=== PATIENT | female | born 1930 | race Caucasian/White ===

== ENCOUNTER → 2016-08-08 | Outpatient (CLI) | payer MEDICARE ==
[~2016-08-08] MED LIST: ASPI-515 PO; METF500T4 PO; OXYC1TAB8 PO; will bring list DOS
== END | disposition home or self-care (01) ==
LOC: CFH 10:15
PROVIDERS: ATTEND Nurse Practitioner Family
DX: Z12.31 Encounter for screening mammogram for malignant neoplasm of breast (principal)
CPT/HCPCS: G0202

== ENCOUNTER 2018-10-10 18:35 | Emergency (ER) | payer MEDICARE ==
[~2018-10-10] VITALS: Ht 157.5 cm; Wt 57.9 kg
[~2018-10-10 18:35] MED LIST changes: +ASPI-650 PO; +DOCU-131 PO; +ERGO500017 PO; +METF500T17 PO; -METF500T4 PO; +OXYC5TAB3 PO; +POLY17PO5 PO
--- NOTE | 2018-10-10 19:25 | NUR ---
C/o pain luq and ruqx1 hour directly after eating w/ radiation to upper back. Denies hypotensive s/s. PER TRIAGE NOTE
--- NOTE | 2018-10-10 19:32 | NUR ---
URINE ORDERED/COLLECTED/SENT TO LAB.
--- NOTE | 2018-10-10 19:42 | NUR ---
vss stable only slight sinus blake hr is up to 60 asymptomatic warm blanket given
--- NOTE | 2018-10-10 19:43 | NUR ---
ua in lab
[2018-10-10 19:49] LABS: MICROSCOPIC NOT IND
[2018-10-10 19:54] LABS: CULTURE INDICATED? NO
--- NOTE | 2018-10-10 19:54 | NUR ---
dr villasenor at bed side for er eval pt is aaox4 able to answer form md
--- NOTE | 2018-10-10 20:52 | NUR ---
PT STATED " I AM FEELING BETTER NOW "
[2018-10-10 20:56] LABS: BASOPHILS # (AUTO) 0.02 x10^3/uL (0-0.1); BASOPHILS % (AUTO) 0 % (0-1); EOSINOPHILS # (AUTO) 0.05 x10^3/uL (0-0.4); EOSINOPHILS % (AUTO) 1 % (1-7); LYMPHOCYTES # (AUTO) 0.84 x10^3/uL (1-3.4); LYMPHOCYTES % (AUTO) 8 % (22-44); MD NO; MEAN CORPUSCULAR HEMOGLOBIN 29.2 pg (27.0-34.8); MEAN CORPUSCULAR HGB CONC 32.7 g/dL (32.4-35.8); MEAN CORPUSCULAR VOLUME 89.3 fL (80-100); MONOCYTES # (AUTO) 0.65 x10^3/uL (0.2-0.8); MONOCYTES % (AUTO) 6 % (2-9); NEUTROPHILS # (AUTO) 8.87 x10^3/uL (1.8-6.8); NEUTROPHILS % (AUTO) 85 % (42-75); PLATELET COUNT 278 x10^3/uL (130-400); RED BLOOD COUNT 4.74 x10^6/uL (3.82-5.3); RED CELL DISTRIBUTION WIDTH 14.6 % (9.6-15.2)
[2018-10-10 21:06] LABS: ALANINE AMINOTRANSFERASE 99 U/L (12-78); ALBUMIN 3.8 g/dL (3.4-5.0); ANION GAP 6 mmol/L (5-15); CHLORIDE 107 mmol/L (98-107); CREATININE 0.93 mg/dL (0.55-1.02)
[2018-10-10 21:09] LABS: ALKALINE PHOSPHATASE 78 U/L (45-117); BILIRUBIN,TOTAL 0.9 mg/dL (0.2-1.0)
--- NOTE | 2018-10-10 21:46 | NUR ---
pt denied nausea vss
--- NOTE | 2018-10-10 23:06 | NUR ---
given dc instruction and referral for following up with surgeon pt understood dc instruction and will come back to er if pt had severe abdomen pain again pt up ambulated to check out vss
[2018-10-10 23:08] VITALS: BP 161/60
== END 2018-10-10 23:10 | disposition home or self-care (01) ==
LOC: ED 22:56
DX: K80.70 Calculus of gallbladder and bile duct without cholecystitis without obstruction (principal); R74.0 Nonspecific elevation of levels of transaminase and lactic acid dehydrogenase [LDH]
CPT/HCPCS: 36415; 74021; 76700; 80053; 81003; 82962; 83690; 85025; 93005; 99284

== ENCOUNTER 2018-10-31 14:22 | Outpatient (CLI) | payer MEDICARE | END 2018-10-31 23:59 | disposition home or self-care (01) | LOC: CVU 14:22 | PROVIDERS: ATTEND Surgery | DX: I08.0 Rheumatic disorders of both mitral and aortic valves (principal); Z90.49 Acquired absence of other specified parts of digestive tract; I10 Essential (primary) hypertension | CPT/HCPCS: 0399T; 93306 ==

== ENCOUNTER 2018-11-30 12:31 | Day surgery (SDC) | payer MEDICARE ==
[~2018-11-30] VITALS: Ht 157.5 cm; Wt 59.6 kg
[~2018-11-30 12:31] MED LIST changes: +ASPI-496 PO
[2018-11-30 12:55] VITALS: BP 163/78
[2018-11-30] MEDS ORDERED: LACTATED RINGERS 1,000 ML IV SCH (13:00)
[2018-11-30] MEDS ORDERED: BUPIVACAINE/EPI 0.5% 1:200K ONE (13:30)
[2018-11-30] MEDS ORDERED: INDOCYANINE GREEN 25 MG VIAL ONE (13:32)
[2018-11-30] MEDS ORDERED: FENTANYL PF 250 MCG/5ML ONE (13:35)
[2018-11-30] MEDS ORDERED: ONDANSETRON ODT 8 MG PO PRN (14:00)
[2018-11-30] MEDS ORDERED: ACETAMINOPHEN 325 MG TABLET PO PRN (14:00)
[2018-11-30] MEDS ORDERED: HYDROmorphone 2 MG/ML, 1ML IVPush PRN (14:00)
[2018-11-30] MEDS ORDERED: ONDANSETRON 2MG/ML, 2ML IV PRN (14:00)
[2018-11-30] MEDS ORDERED: FENTANYL PF 100 MCG/2ML IV PRN (14:00)
[2018-11-30] MEDS ORDERED: PROMETHAZINE 25 MG/ML, 1ML IV PRN (14:00)
[2018-11-30] MEDS ORDERED: OXYcodone 5 MG/5 ML ORAL.SOL UDC PO PRN (14:00)
[2018-11-30] MEDS ORDERED: SUGAMMADEX 200 MG/2 ML IVPush ONE (14:53)
[2018-11-30] MEDS ORDERED: DEXAMETHASONE 4 MG/ML, 1ML ONE (15:07)
[2018-11-30] MEDS ORDERED: ROCURONIUM 10MG/ML,5ML ONE (15:07)
[2018-11-30] MEDS ORDERED: GLYCOPYRROLATE 0.2MG/1ML, 5ML ONE (15:07)
[2018-11-30] MEDS ORDERED: PROPOFOL 10 MG/ML, 20ML ONE (15:07)
[2018-11-30] MEDS ORDERED: CEFAZOLIN 1,000 MG ONE (15:07)
[2018-11-30] MEDS ORDERED: NEOSTIGMINE 1 MG/ML, 10ML ONE (15:07)
[2018-11-30] MEDS ORDERED: ONDANSETRON 2MG/ML, 2ML ONE (15:07)
[2018-11-30] MEDS ORDERED: SUCCINYLCHOLINE 20 MG/ML, 10ML ONE (15:07)
[2018-11-30] MEDS ORDERED: OXYcodone 5 MG/5 ML ORAL.SOL UDC ONE (15:17)
[2018-11-30] MEDS ORDERED: FENTANYL PF 100 MCG/2ML ONE (15:17)
== END 2018-11-30 17:55 | disposition home or self-care (01) ==
LOC: OUT 12:31
PROVIDERS: ATTEND Surgery
DX: K80.10 Calculus of gallbladder with chronic cholecystitis without obstruction (principal); K82.8 Other specified diseases of gallbladder; I35.0 Nonrheumatic aortic (valve) stenosis; Z79.82 Long term (current) use of aspirin; Z88.8 Allergy status to other drugs, medicaments and biological substances; Z96.641 Presence of right artificial hip joint; Z82.49 Family history of ischemic heart disease and other diseases of the circulatory system; Z80.0 Family history of malignant neoplasm of digestive organs
CPT/HCPCS: 47562; 88304; J0330; J0690; J1100; J2405; J2704; J2710; J3010; J7120; S2900